=== PATIENT | male | born 1975 | race Hispanic/Latino ===

== ENCOUNTER 2019-02-27 09:36 | Outpatient (CLI) | payer OTHER ==
--- NOTE | 2019-02-27 11:05 | ULT ---
RIGHT UPPER QUADRANT ULTRASOUND: HISTORY: Elevated LFTs. FINDINGS: Coarse echogenicity within the liver, evidence for fatty change, with some minimal fatty sparing dylon cent to the gallbladder. No evidence of gallstones, wall thickening, edema or pericholecystic fluid. The common bile duct is 0.7 cm, borderline. There is some minimal faint sludge within the gallbladder . IMPRESSION: 1. Fatty changes within the liver with some fatty sparing. 2. No evidence of gallstones, although there does appear to be some subtle gallbladder sludge. 3. Borderline sized common bile duct at 0.7 cm. POS: OFF
== END 2019-02-27 09:37 | disposition home or self-care (01) ==
LOC: BICULT 09:36
PROVIDERS: ATTEND Physician Assistant
DX: R79.89 Other specified abnormal findings of blood chemistry (principal); K76.0 Fatty (change of) liver, not elsewhere classified
CPT/HCPCS: 76705

== ENCOUNTER 2019-07-30 21:42 | Emergency (ER) | payer OTHER, SELFPAY ==
[2019-07-31 14:22] LABS: SARS-CoV-2 MS2 Positive; SARS-CoV-2 N Gene Negative; SARS-CoV-2 S Gene Negative; SARS-CoV-2 orf1ab Negative
== END 2019-07-30 22:40 | disposition home or self-care (01) ==
LOC: ERS 21:42
DX: Z20.828 Contact with and (suspected) exposure to other viral communicable diseases (principal); E11.9 Type 2 diabetes mellitus without complications; Z79.899 Other long term (current) drug therapy
CPT/HCPCS: 87635; 99283; U0003